=== PATIENT | male | born 1955 | race African-American/Black ===

== ENCOUNTER 2016-12-03 13:56 | Emergency (ER) | payer MEDICARE, OTHER ==
[~2016-12-03] VITALS: Ht 170.2 cm; Wt 67.0 kg
[~2016-12-03 13:56] MED LIST: 1-ME1LIQ PO; LISI40TA PO; NAPR220T95 PO
[2016-12-03 13:57] VITALS: BP 172/108; PULSE 102; RESP 20; TEMP 98.4; O2SAT 97
--- NOTE | 2016-12-03 18:52 | PD ---
HPI Chief Complaint: Fall Time Seen by Provider: 18:46 Travel History International Travel<30 days: No Contact w/Intl Traveler<30days: No Traveled to known affect area: No History of Present Illness HPI 61-year-old male here for evaluation of left anterior chest wall pain after a mechanical trip and fall while gardening 2 days ago, landing onto his left chest. Since this fall he has had significant pain in his left chest which is worse with movement, palpation, and inspiration. He denies sustaining any other injuries. No head injury or LOC. No head neck or back pain. No pain in any other joint or extremity. He denies history of cardiac disease. [facility] Past Medical History Arthritis: Yes (left knee) Asthma: Yes Diminished Hearing: No Hypertension: Yes Immunizations Current: No Social History Alcohol Use: No Tobacco Use: No Substance Use: No Allergies-Medications (Allergen,Severity, Reaction): Coded Allergies: No Known Allergies (Verified , 12/03/16) Reported Meds & Prescriptions Reported Meds & Active Scripts Active Lisinopril 40 Mg Tab 40 Mg PO DAILY Reported Aleve (Naproxen Sodium) 220 Mg Tab 220 Mg PO DAILY PRN Amlodipine (Amlodipine Besylate) 10 Mg Tab 10 Mg PO DAILY Review of Systems Except as stated in HPI: all other systems reviewed are Neg Physical Exam Narrative GENERAL: Well-developed, well-nourished, comfortable, no acute distress. SKIN: Warm and dry. No lacerations, abrasions, or ecchymosis. HEAD: Atraumatic. Normocephalic. EYES: Pupils equal and round. No scleral icterus. No injection or drainage. ENT: Mucous membranes pink and moist. NECK: Trachea midline. No JVD. No midline vertebral step-off or tenderness. CARDIOVASCULAR: Regular rate and rhythm. No murmur appreciated. RESPIRATORY: No accessory muscle use. Clear to auscultation. Breath sounds equal bilaterally. GASTROINTESTINAL: Abdomen soft, non-tender, nondistended. MUSCULOSKELETAL: No obvious deformities. No clubbing. No cyanosis. No edema. Left anterior chest wall tenderness over left fourth and fifth ribs without crepitus, without step-off, without paradoxical chest wall movement. Pelvis is stable. All of his joints and extremities are without deformity, without tenderness, with normal range of motion. NEUROLOGICAL: Awake and alert. No obvious cranial nerve deficits. Motor grossly within normal limits. Normal speech. PSYCHIATRIC: Appropriate mood and affect; insight and judgment normal. Data Data Last Documented VS Vital Signs Date Time Temp Pulse Resp B/P Pulse Ox O2 Delivery O2 Flow Rate FiO2 12/03/16 19:17 69 20 162/89 99 12/03/16 13:57 98.4 Room Air Orders Electrocardiogram (12/03/16 18:49) Basic Metabolic Panel (Bmp) (12/03/16 18:49) Ckmb (Isoenzyme) Profile (12/03/16 18:49) Complete Blood Count With Diff (12/03/16 18:49) Prothrombin Time / Inr (Pt) (12/03/16 18:49) Act Partial Throm Time (Ptt) (12/03/16 18:49) Troponin I (12/03/16 18:49) Ecg Monitoring (12/03/16 18:49) Iv Access Insert/Monitor (12/03/16 18:49) Oximetry (12/03/16 18:49) Sodium Chloride 0.9% Flush (Ns Flush) (12/03/16 19:00) Ribs, Uni (W/Exp Cxr-Min 3vw) (12/03/16 ) Morphine Inj (Morphine Inj) (12/03/16 19:00) CKMB (12/03/16 19:00) CKMB% (12/03/16 19:00) Labs Laboratory Tests Test 12/03/16 19:00 White Blood Count 4.5 TH/MM3 Red Blood Count 4.39 MIL/MM3 Hemoglobin 12.8 GM/DL Hematocrit 36.2 % Mean Corpuscular Volume 82.3 FL Mean Corpuscular Hemoglobin 29.0 PG Mean Corpuscular Hemoglobin 35.3 % Concent Red Cell Distribution Width 14.0 % Platelet Count 237 TH/MM3 Mean Platelet Volume 8.6 FL Neutrophils (%) (Auto) 57.5 % Lymphocytes (%) (Auto) 34.4 % Monocytes (%) (Auto) 6.6 % Eosinophils (%) (Auto) 0.5 % Basophils (%) (Auto) 1.0 % Neutrophils # (Auto) 2.6 TH/MM3 Lymphocytes # (Auto) 1.5 TH/MM3 Monocytes # (Auto) 0.3 TH/MM3 Eosinophils # (Auto) 0.0 TH/MM3 Basophils # (Auto) 0.0 TH/MM3 CBC Comment DIFF FINAL Differential Comment Prothrombin Time 10.8 SEC Prothromb Time International 1.0 RATIO Ratio Activated Partial 25.9 SEC Thromboplast Time Sodium Level 141 MEQ/L Potassium Level 3.8 MEQ/L Chloride Level 106 MEQ/L Carbon Dioxide Level 26.6 MEQ/L Anion Gap 8 MEQ/L Blood Urea Nitrogen 10 MG/DL Creatinine 1.25 MG/DL Estimat Glomerular Filtration 71 ML/MIN Rate Random Glucose 98 MG/DL Calcium Level 8.8 MG/DL Total Creatine Kinase 234 U/L Creatine Kinase MB 1.4 NG/ML Troponin I LESS THAN 0.02 NG/ML MDM Medical Decision Making Medical Screen Exam Complete: Yes Emergency Medical Condition: Yes Interpretation(s) EKG: Sinus, rate 66, left axis deviation, LVH, nonspecific T-wave abnormality, no acute ischemic abnormalities. Differential Diagnosis Chest wall contusion, rib fracture, hemothorax, pulmonary contusion, pneumothorax, ACS Narrative Course Vital signs show heart rate 69, blood pressure 162/89, pulse ox 99% on room air , oral temp of 98.4F. CBC is unremarkable. BMP is unremarkable. Cardiac enzymes are negative. Chest x-ray and left rib x-rays: No perceptible rib fracture. No pneumothorax or other acute cardiopulmonary disease demonstrated. Patient is resting comfortably. He was made aware of all findings. His pain is definite muscular skeletal in nature. I do not believe it is cardiac in nature. He will be discharged home with pain medication and an incentive spirometer. PMD follow-up this week. He was informed on when to return to the emergency department. He verbalizes understanding and agreement with plan. Diagnosis Primary Impression: Chest wall contusion Qualified Code: S20.212A - Chest wall contusion, left, initial encounter Additional Instructions: Follow-up with your primary care physician this week. Return to the emergency department for worsening symptoms or any other concerns. Scripts Methocarbamol (Robaxin)500 Mg Imq155 Mg PO TID #15 TAB Ref 0 Prov:Adalid De Anda MD 12/03/16 Oxycodone-Acetaminophen (Percocet)5-325 mg Tab1 Tab PO Q6H PRN (PAIN) #15 TAB Ref 0 Prov:Adalid De Anda MD 12/03/16 Disposition: 01 DISCHARGE HOME Condition: Stable Adalid De Anda MD Dec 03, 2016 18:52
[2016-12-03] MEDS ORDERED: SODIUM CHLORIDE 0.9% FLUSH 5 ML FLUSH IVF PRN (19:00)
[2016-12-03] MEDS ORDERED: MORPHINE SULFATE 4 MG/ML INJ IV PUSH ONE (19:00)
[2016-12-03 19:17] VITALS: BP 162/89; PULSE 69; RESP 20; O2SAT 99
[2016-12-03 19:19] LABS: AUTOMATED NEUTROPHIL # 2.6 TH/MM3 (1.8-7.7); EOSINOPHIL % 0.5 % (0.0-4.0); HEMATOCRIT 36.2 % (39.0-51.0); HEMO FLAGS DIFF FINAL; LYMPH % 34.4 % (9.0-44.0); LYMPHOCYTE # 1.5 TH/MM3 (1.0-4.8); MEAN CELL VOLUME 82.3 FL (80.0-100.0); MEAN CORPUSCULAR HGB CONC 35.3 % (32.0-36.0); MONO % 6.6 % (0.0-8.0); NEUT % 57.5 % (16.0-70.0); PLATELET COUNT 237 TH/MM3 (150-450); RED BLOOD COUNT 4.39 MIL/MM3 (4.50-5.90); WHITE BLOOD COUNT 4.5 TH/MM3 (4.0-11.0)
--- NOTE | 2016-12-03 19:26 | RADRPT ---
EXAM DATE/TIME: 12/03/2016 19:11 [facility] COMPARISON: No previous studies available for comparison. INDICATIONS : Fall 2 days ago. Left middle rib pain. MEDICAL HISTORY : None. SURGICAL HISTORY : None. ENCOUNTER: Initial ACUITY: 2 days PAIN SCORE: 8/10 LOCATION: Left middle ribs FINDINGS: Multiple views of the left ribs were performed. There is no evidence of displaced fracture. No dest ructive lesions or areas of periosteal thickening are seen. Expiratory view of the chest is negative for pneumothorax. The mediastinal structures are midline. CONCLUSION: No perceptible rib fracture. No pneumothorax or other acute cardiopulmonary disease demonstrated. Mike Silva MD on December 03, 2016 at 19:24 Board Certified Radiologist. This report was verified electronically.
[2016-12-03] MEDS ORDERED: AMLO10TA2 PO (19:34)
[2016-12-03] MEDS ORDERED: NAPR220T95 PO (19:34)
[2016-12-03 19:42] LABS: APTT (PATIENT) 25.9 SEC (24.3-30.1); PROTHROMBIN TIME - PATIENT 10.8 SEC (9.8-11.6)
[2016-12-03 19:43] LABS: ANION GAP 8 MEQ/L (5-15); BICARBONATE 26.6 MEQ/L (21.0-32.0); BLOOD UREA NITROGEN 10 MG/DL (7-18); CHLORIDE 106 MEQ/L (98-107); GLOMERULAR FILTRATION RATE 71 ML/MIN (>89); POTASSIUM 3.8 MEQ/L (3.5-5.1); SODIUM (NA) 141 MEQ/L (136-145)
[2016-12-03 19:47] LABS: CREATINE KINASE 234 U/L (39-308)
[2016-12-03 20:00] LABS: CKMB 1.4 NG/ML (0.5-3.6)
[2016-12-03] MEDS ORDERED: ROBA500T PO (20:07)
[2016-12-03] MEDS ORDERED: PERC5TAB12 PO (20:07)
[2016-12-03] MEDS ORDERED: KETOROLAC TROMETHAMINE 30 MG/ML (IVP) VIAL IV PUSH ONE (20:15)
[2016-12-03 20:26] VITALS: BP 164/95
[2016-12-03 20:34] VITALS: RESP 20
--- NOTE | 2016-12-04 13:01 | EKG ---
Date Performed: 12/03/2016 Time Performed: 19:14:02 PTAGE: 61 years EKG: Sinus rhythm VOLTAGE CRITERIA FOR LVH NONSPECIFIC T-WAVE ABNORMALITY ABNORMAL ECG PREVIOUS TRACING : 03/11/2014 09.58 Compared to previous tracing, nonspecific T wave abnormalit y is now present. DOCTOR: Nestor Harris Interpretating Date/Time 12/04/2016 12:59:56
[2017-01-22] MEDS ORDERED: AMLO10TA2 PO (16:41)
[2017-01-22] MEDS ORDERED: LISI40TA PO (16:41)
== END 2016-12-03 20:46 | disposition home or self-care (01) ==
LOC: NEPA 13:56
DX: S20.212A Contusion of left front wall of thorax, initial encounter (principal); W01.0XXA Fall on same level from slipping, tripping and stumbling without subsequent striking against object, initial encounter; Y93.H2 Activity, gardening and landscaping
CPT/HCPCS: 71101; 80048; 82550; 82552; 84484; 85025; 85610; 85730; 93005; 96374; 96375; 99284; J1885; J2270

== ENCOUNTER 2018-03-03 08:43 | Emergency (ER) | payer OTHER, MEDICAID ==
[~2018-03-03] VITALS: Ht 170.2 cm; Wt 65.0 kg
[~2018-03-03 08:43] MED LIST changes: -1-ME1LIQ PO; +AMLO10TA2 PO
[2018-03-03 08:57] VITALS: BP 176/89; PULSE 99; RESP 20; TEMP 98; O2SAT 99
--- NOTE | 2018-03-03 09:43 | PD ---
HPI . Bump on his foot Chief Complaint: Skin Problem Time Seen by Provider: 09:12 Travel History International Travel<30 days: No Contact w/Intl Traveler<30days: No Traveled to known affect area: No History of Present Illness HPI Patient presents with chief complaint of a bump on the plantar aspect of his right foot. Onset was a few days ago. It is not painful. He reports no injury. He does not believe that he has stepped on anything. PFSH Past Medical History Arthritis: Yes (left knee) Asthma: Yes Diminished Hearing: No Hypertension: Yes Immunizations Current: No Past Surgical History Surgical History: No Previous Surgery Social History Alcohol Use: No Tobacco Use: No Substance Use: No Allergies-Medications (Allergen,Severity, Reaction): Coded Allergies: No Known Allergies (Verified Adverse Reaction, Unknown, 03/03/18) Reported Meds & Prescriptions Reported Meds & Active Scripts Active Lisinopril 40 Mg Tab 40 Mg PO DAILY Review of Systems Except as stated in HPI: all other systems reviewed are Neg Physical Exam Narrative GENERAL: Awake and alert and in no acute distress. SKIN: Warm and dry. Normal color and turgor. There is a nodule on the plantar aspect of the right midfoot. There is no redness, warmth, tenderness. There is no fluctuance. HEAD: Normocephalic/atraumatic. EYES: Pupils are equal. Extraocular movements are intact. NECK: Normal range of motion. Supple. CARDIOVASCULAR: Regular rate and rhythm. RESPIRATORY: Nonlabored respirations. Normal sats. MUSCULOSKELETAL: Atraumatic. Normal muscle tone. NEUROLOGICAL: A and O 3. Nonfocal. PSYCHIATRIC: Appropriate mood and affect. Data Data Last Documented VS Vital Signs Date Time Temp Pulse Resp B/P (MAP) Pulse Ox O2 Delivery O2 Flow Rate FiO2 03/03/18 08:57 98.0 99 20 176/89 (118) 99 Orders Orders Ed Discharge Order (03/03/18 09:25) MDM Medical Decision Making Medical Screen Exam Complete: Yes Emergency Medical Condition: No Differential Diagnosis My differential diagnosis of abscess includes but is not limited to abscess, cyst, lipoma Narrative Course This patient presents with a lump on the plantar aspect of his right foot. There is absolutely nothing to this. He can follow-up with a metal worker. Diagnosis Primary Impression: Plantar callus Referrals: Amalia Ba DPGarrett Patient Instructions: General Instructions Departure Forms: Tests/Procedures Disposition: 01 DISCHARGE HOME Condition: Stable Madeline Antunez MD Mar 03, 2018 09:43
== END 2018-03-03 09:53 | disposition home or self-care (01) ==
LOC: NEPD 08:43
DX: L84 Corns and callosities (principal); I10 Essential (primary) hypertension
CPT/HCPCS: 99281